=== PATIENT | male | born 1960 | race Caucasian/White ===

== ENCOUNTER 2023-02-16 08:00 | Outpatient (CLI) | payer OTHER ==
--- NOTE | 2023-02-16 16:55 | XRAY Report ---
PROCEDURE: Abdomen 2 View X-Ray INDICATIONS: ABDOMINAL PAIN, ACUTE TECHNIQUE: 2 views of the abdomen were acquired. COMPARISON: None. FINDINGS: Surgical changes and devices: None. Bowel: No definite pneumoperitoneum. The bowel gas pattern is normal. Stool load within normal limi ts. No radiographic evidence of portal venous gas. Soft tissues: No masses; visualized solid organ contours appear normal in size. No suspicious abdom inal calcifications. Bones: No suspicious bony abnormalities. IMPRESSION: No acute abdominal pathology. No definite pneumoperitoneum. If there is high clinical suspicion for a cute abdomen, consider cross-sectional imaging for further evaluation. Reviewed by: Yu Snowden MD on 02/16/2023 4:54 PM PST Approved by: Yu Snowden MD on 02/16/2023 4:54 PM PST Station ID: [id number]
== END 2023-02-16 23:59 | disposition home or self-care (01) ==
LOC: DI.S 08:00
PROVIDERS: ATTEND Physician Assistant
DX: R10.9 Unspecified abdominal pain (principal)

== ENCOUNTER 2023-02-16 17:25 | Emergency (ER) | payer OTHER ==
[2023-02-16 17:54] VITALS: BP 160/89; O2SAT 99
[2023-02-16 18:03] LABS: BASOPHILS # (AUTO) 0.1 10^3/uL (0.0-0.1); BASOPHILS % (AUTO) 0.5 %; EOSINOPHILS # (AUTO) 0.3 10^3/uL (0.0-0.7); HCT - HEMATOCRIT 48.1 % (42.0-52.0); HGB - HEMOGLOBIN 16.3 g/dL (14.0-18.0); LYMPHOCYTES # (AUTO) 1.9 10^3/uL (1.5-3.5); LYMPHOCYTES % (AUTO) 17.9 %; MEAN CORPUSCULAR HEMOGLOBIN 30.4 pg (27.0-31.0); MEAN CORPUSCULAR HGB CONC 33.9 g/dL (32.0-36.0); MEAN CORPUSCULAR VOLUME 89.6 fL (80.0-94.0); MEAN PLATELET VOLUME 9.7 fL (7.4-11.4); MONOCYTES # (AUTO) 1.2 10^3/uL (0.0-1.0); MONOCYTES % (AUTO) 11.3 %; NEUTROPHILS # (AUTO) 7.3 10^3/uL (1.5-6.6); NEUTROPHILS % (AUTO) 67.1 %; PLT - PLATELET COUNT 227 10^3/uL (130-450); RED BLOOD COUNT 5.37 10^6/uL (4.70-6.10); RED CELL DISTRIBUTION WIDTH 13.2 % (12.0-15.0); WHITE BLOOD COUNT 10.8 x10^3/uL (4.8-10.8)
[2023-02-16 18:16] LABS: ALBUMIN 4.4 g/dL (3.2-5.5); ALBUMIN/GLOBULIN RATIO 1.5 (1.0-2.2); CALCIUM 9.9 mg/dL (8.5-10.3); CREATININE 1.1 mg/dL (0.6-1.3); POTASSIUM 3.9 mmol/L (3.5-4.5); TOTAL PROTEIN 7.4 g/dL (6.4-8.9)
[2023-02-16 18:18] LABS: BILIRUBIN,URINE NEGATIVE (NEGATIVE); GLUCOSE, URINE (UA) NEGATIVE (NEGATIVE); KETONES,URINE (UA) TRACE mg/dL (NEGATIVE); LEUKOCYTE ESTERASE, URINE NEGATIVE (NEGATIVE); NITRITE,URINE NEGATIVE (NEGATIVE); OCCULT BLOOD,URINE TRACE-INTA (NEGATIVE); PROTEIN,URINE NEGATIVE (NEGATIVE); UROBILINOGEN,URINE 0.2 (NORMAL) E.U./dL (NORMAL)
[2023-02-16 18:19] LABS: CLARITY,URINE CLEAR (CLEAR)
[2023-02-16] MEDS ORDERED: AMOX/CLAV 875 MG/125 MG TABLET PO STA (18:37)
--- NOTE | 2023-02-16 18:37 | ED Physician Documentation ---
PD HPI ABD PAIN - Stated complaint Stated Complaint: LT LOWER ABD PX - Chief complaint Chief Complaint: Abd Pain - History obtained from History obtained from: Patient - Additional information Additional information: 62-year-old gentleman with recurrent diverticulitis presents with what he feels like is a flare of same with 2 days of left lower quadrant pain and some diarrhea. He has not had fevers or nausea. He went to the [facility] and walk-in clinic, and had abdominal x-rays done which were negative. They recommended he come here for further evaluation and treatment. They did not call ahead. PD PAST MEDICAL HISTORY - Past Medical History Past Medical History: Yes Cardiovascular: Hypertension HEENT: Other - Past Surgical History Past Surgical History: Yes - Present Medications Home Medications: Ambulatory Orders Medication Instructions Recorded Confirmed Amox/Clav 875/125 [Augmentin] 1 each PO TID #21 tablet 02/16/23 - Allergies Allergies/Adverse Reactions: Allergies Allergy/AdvReac Type Severity Reaction Status Date / Time red dye Allergy Unknown Verified 02/16/23 17:42 - Social History Does the pt smoke?: No Smoking Status: Never smoker PD ED PE NORMAL - Vitals Vital signs reviewed: Yes - General General: Alert and oriented X 3, No acute distress - Abdomen Abdomen: Normal bowel sounds, Soft, Non tender - Neuro Neuro: Alert and oriented X 3, Normal speech Results - Vitals Vitals: Vital Signs - 24 hr 02/16/23 17:40 Temperature 36.7 C Heart Rate 80 Respiratory 18 Rate Blood Pressure 160/89 H O2 Saturation 99 Oxygen O2 Source Room air - Labs Labs: Laboratory Tests 02/16/23 02/16/23 02/16/23 17:57 17:57 18:05 WBC 10.8 RBC 5.37 Hgb 16.3 Hct 48.1 MCV 89.6 MCH 30.4 MCHC 33.9 RDW 13.2 Plt Count 227 MPV 9.7 Neut # (Auto) 7.3 H Lymph # (Auto) 1.9 [place] # (Auto) 1.2 H Eos # (Auto) 0.3 Baso # (Auto) 0.1 Absolute Nucleated RBC 0.00 Nucleated RBC % 0.0 Sodium 136 Potassium 3.9 Chloride 102 Carbon Dioxide 28 Anion Gap 6.0 BUN 12 Creatinine 1.1 Estimated GFR (MDRD) 67 L Glucose 101 Calcium 9.9 Total Bilirubin 1.0 AST 15 ALT 31 Alkaline Phosphatase 77 Total Protein 7.4 Albumin 4.4 Globulin 3.0 Albumin/Globulin Ratio 1.5 Lipase 24 Urine Color YELLOW Urine Clarity CLEAR Urine pH 6.0 Ur Specific [place] 1.025 Urine Protein NEGATIVE Urine Glucose (UA) NEGATIVE Urine Ketones TRACE Urine Occult Blood TRACE-INTA Urine Nitrite NEGATIVE Urine Bilirubin NEGATIVE Urine Urobilinogen 0.2 (NORMAL) Ur Leukocyte Esterase NEGATIVE Ur Microscopic Review NOT INDICATED Urine Culture Comments NOT INDICATED PD Medical Decision Making - ED course ED course: 62-year-old gentleman with apparent flare of recurrent diverticulitis. Labs unremarkable here with nontender abdominal examination. He had outpatient x- rays of the abdomen which were negative but that does not help advance as to his diagnosis. I offered a CT but discussed with him that alternative pathology was unlikely and he declined wanting some antibiotics. Departure - Departure Disposition: 01 Home, Self Care Clinical Impression: Diverticulitis of gastrointestinal tract Condition: Good Record reviewed to determine appropriate education?: Yes Instructions: ED Diverticulitis, Diet Low Residue Prescriptions: Amox/Clav 875/125 [Augmentin] 1 each PO TID #21 tablet Comments: Today you have an apparent flare of recurring diverticulitis. I sent a [facility] to [facility] [address] in [place]. See the attached instructions about a low residue diet which she should follow until feeling better. If you have not had a colonoscopy in the last couple of years, you should have 1 in the next 3 to 6 months but not in the next 2 months to let your colon heal.
== END 2023-02-16 18:48 | disposition home or self-care (01) ==
LOC: ED 17:25
DX: K57.92 Diverticulitis of intestine, part unspecified, without perforation or abscess without bleeding (principal); I10 Essential (primary) hypertension
CPT/HCPCS: 36415; 80053; 81003; 83690; 85025; 99283; A9270; 81001; 87086